=== PATIENT | male | born 1960 | race Caucasian/White ===

== ENCOUNTER → 2017-03-06 | Emergency (ER) | payer SELFPAY ==
[~2017-03-06] MED LIST: Bupivacaine 0.5%* 50 ML VIAL INJ ONE; Morphine INJ* 4 MG/ML 1 ML SYRINGE IV ONE; Morphine INJ* 4 MG/ML 1 ML SYRINGE ONE; NS 0.9% 1000 ML* 1,000 ML IV ONE; Ondansetron INJ* 2 MG/ML VIAL IV ONE; ceFAZolin 2 GM PREMIX(*) 2 GM/50 ML BAG IVPB ONE; oxyCODONE/Acetamin 5/325 MG* TAB PO ONE
--- NOTE | 2017-03-06 14:58 | RAD ---
Indication: Traumatic injury to the LEFT hand; laceration with table saw. Comparison: No relevant prior exams available on the [facility] for comparison. Technique: AP and lateral views of the LEFT hand were obtained with a bandage in place. REPORT AND IMPRESSION: Detail is limited due to flexion position of the fingers and overlying bandage. There is traumatic injury to the fourth finger at the level of the distal interphalangeal joint with traumatic comminution/fracture of the distal phalanx with sparing of the tuft. There is also suggestion of comminution/fracture at the head of the second middle phalanx extending to the distal interphalangeal joint. Negative for dislocation.
--- NOTE | 2017-03-06 16:29 | RAD ---
INDICATION: Left hand versus saw COMPARISON: Same day left hand radiograph acquired 1342 hours with the fingers flexed with bandaging TECHNIQUE: 2 views of the left hand were obtained at 1459 hours FINDINGS: There is abrupt cut off of the left index finger middle phalanx distal pole. The distal phalanx of the index finger is otherwise appropriately aligned. There is induration of the soft tissue in between the bones. There is obliteration of the proximal pole of the left ring finger distal phalanx with bony fragments seen in the soft tissue. The remaining visualized bones of the left hand and wrist are otherwise intact and appropriately aligned. IMPRESSION: Obliteration of the distal pole of the left index finger middle phalanx and left ring finger distal phalanx proximal pole consistent with the patient's reported "saw injury"
[2017-03-06 19:34] VITALS: BP 149/84
--- NOTE | 2017-03-07 16:54 | CONS ---
CONSULTATION REPORT: DATE OF CONSULT: 03/06/17 - EMERGENCY DEPT CHIEF COMPLAINT: Left hand injury. HISTORY OF PRESENT ILLNESS: Ritchie Mercedes is a very pleasant 57-year-old man, who injured his left hand with a table saw. He was holding the end of the board and his hand got caught by the saw, injuring the index, middle, and ring fingers. He has had a dose of IV antibiotic and some digital blocks and x- rays. X-rays show no injury of the thumb, middle, and small fingers. There is a cut though the DIP joint of the index finger and through the most proximal aspect of the distal phalanx of the left ring finger. PHYSICAL EXAM: Mr. Mercedes is a very pleasant 57-year-old man, in moderate distress at rest. On exam of his left hand, there are lacerations mostly on the volar aspect of the index, middle, and ring fingers of the left hand. The middle finger has a laceration across the DIP joint flexion crease. He has active flexion of the finger, but no sensation distal. The tip is well perfused. He has active extension of the finger and he has PIP motion. He has no motion past the DIP joint of the index and ring fingers. There is a very tiny skin bridge holding on the distal aspect of the index finger and a 1-cm skin bridge holding the distal aspect of the ring finger. IMPRESSION: Table saw injury of the left hand involving the index, middle, and ringer fingers. PLAN: The patient was prior given the digital block by the emergency room physician. This was supplemented with some 1% plain lidocaine. I did a revision amputation of the index and ring fingers, removing the unstable bony fragments and the poorly perfused skin and then closing with flaps that were remaining. The laceration of the middle finger was sutured in situ with 4-0 nylon suture. The wounds were dressed with Xeroform, 4x4, Rob, and an Deepak wrap. The patient tolerated the procedure well. He was given prescription for p.o. antibiotics and for pain medication and was asked to follow up in my office on Friday for wound evaluation and then we will start him on some warm and soapy water soaking. [id number]/[facility] #: [id number] CLAUDIA
--- NOTE | 2017-03-10 10:07 | ED ---
Gretchen Horton Thomas, scribed for Jayme Rojas MD on 03/06/17 at 1500 . Upper Extremity Pain - HPI Summary HPI Summary: The pt is a 57 y/o M presenting to the ED c/o lacerations on the L hand s/p table saw injury. He is R-handed. He reports that he has had a tetanus shot within the last two years. He rates his pain 7/10 in the ED. Upon evaluation, a bandage is applied. The pt says that it is wrapped very tight and is throbbing . PMHx: ID (two). PSHx: coronary stents. The pt is on a blood thinner. - History of Current Complaint Chief Complaint: EDGeneral Stated Complaint: LT HAND LAC Time Seen by Provider: 03/06/17 14:31 Hx Obtained From: Patient Mechanism Of Injury: Penetrating Trauma - table saw Onset/Duration: Still Present Timing: Constant Severity Initially: Moderate Pain Location: Hand - L Character: Throbbing Aggravating Factor(s): Nothing Alleviating Factor(s): Nothing - Allergies/Home Medications Allergies/Adverse Reactions: Allergies Allergy/AdvReac Type Severity Reaction Status Date / Time No Known Allergies Allergy Verified 03/06/17 15:30 Home Medications: Home Medications Aspirin EC Low Dose* [Ecotrin EC Low Dose 81 MG*] 81 mg PO DAILY 03/06/17 [ History Confirmed 03/06/17] Atorvastatin* [Lipitor*] 40 mg PO DAILY 03/06/17 [History Confirmed 03/06/17] Fluticasone-Salmeterol 250-50* [Advair Diskus 250-50*] 1 puff INH BID 03/06/17 [ History Confirmed 03/06/17] Isosorbide Mononitrate ER TAB* [Imdur ER TAB*] 60 mg PO DAILY 03/06/17 [History Confirmed 03/06/17] Lisinopril [Lisinopril 2.5 MG-] 1.25 mg PO DAILY 03/06/17 [History Confirmed ] Metoprolol Succinate XL TAB* [Toprol XL TAB*] 25 mg PO TID 03/06/17 [History Confirmed 03/06/17] Metoprolol Succinate [Toprol Xl] 25 mg PO TID 03/06/17 [History Confirmed ] Nicotine Inhaler* 10 mg INH Q2H PRN 03/06/17 [History Confirmed 03/06/17] Nitroglycerin TAB 0.4 MG* 0.4 mg SL Q5M PRN 03/06/17 [History Confirmed 03/06/17 ] Prasugrel HCl [Effient] 10 mg PO DAILY 03/06/17 [History Confirmed 03/06/17] Ranolazine (NF) [Ranexa (NF)] 500 mg PO BID 03/06/17 [History Confirmed 03/06/17 ] Zolpidem TAB* [Ambien TAB*] 5 mg PO BEDTIME PRN 03/06/17 [History Confirmed ] PMH/Surg Hx/FS Hx/Imm Hx Previously Healthy: No Cardiovascular History: Reports: Hx Myocardial Infarction - two Sensory History: Denies: Hx Legally Blind - Surgical History Surgery Procedure, Year, and Place: Coronary stents Infectious Disease History: No Infectious Disease History: Denies: Traveled Outside the [place] in Last 30 Days - Family History Known Family History: Negative: Cardiac Disease, Diabetes - Social History Alcohol Use: Rare Substance Use Type: Reports: None Smoking Status (MU): Heavy Every Day Tobacco Smoker Review of Systems Positive: Skin Diaphoresis. Negative: Fever, Chills Eyes: Negative Negative: Erythema - eyes ENT: Negative Negative: Sore Throat Cardiovascular: Negative Negative: Chest Pain Respiratory: Negative Negative: Shortness Of Breath Gastrointestinal: Negative Negative: Abdominal Pain, Diarrhea, Nausea Genitourinary: Negative Negative: dysuria, hematuria Musculoskeletal: Negative Negative: Myalgia, Edema - leg Positive: Other - Lacerations to L hand on pointer, middle, and ring finger. Neurological: Negative, Other - NEG: dizziness Psychological: Normal All Other Systems Reviewed And Are Negative: Yes Physical Exam - Summary Physical Exam Summary: Constitutional: Well-developed, Well-nourished, Alert, Cooperative Skin: Warm, Dry. The pt has lacerations 1cm each on the pointer, middle finger, and ring finger. The pointer finger has a 5mm round area possibly necrotic or hyperpigmented over the distal phalynx. All the lacerations are over the distal interphalangeal joint. HENT: Normocephalic; No Racoons eyes; No battles sign; No abrasion; No contusion ; No hemotympanum; No maxilla facial tenderness or instability; Dentition are smooth; No dental trauma; No trismus Eyes: EOM normal, PERRL Neck: Trachea is midline. No stridor; No JVD; No step off; No posterior cervical spine tenderness Cardio: Rhythm regular, rate normal Heart sounds normal; Intact distal pulses; The pedal pulses are 2+ and symmetric. Radial pulses are 2+ and symmetric. Pulmonary/Chest wall: Effort normal; Breath sounds normal; Equal chest rise; No flail segment; No rib tenderness; No sternal tenderness Abd: Soft, Appearance normal. No distension; No tenderness; No palpable pulsatile mass; No Cullens sign; No Lr-Turners sign Musculoskeletal: Full ROM and no tenderness at hips, ankles, shoulders, elbows and knees; No joint swelling; No vertebral body tenderness; No paraspinal tenderness; No step off or deformity of the spine; Pelvis is stable to lateral compression and rock Neuro: Light touch sensation is absent on the lacerated fingers. The pt does have intact flexion and extension of the lacerated fingers at the DIP and PIP joints. Exam is somewhat limited due to pain. Alert, Oriented x3, Strength 5/5 all extremities. : No blood at urethral meatus Psych: Mood and affect Normal Triage Information Reviewed: Yes Vital Signs On Initial Exam: Initial Vitals Temp Resp BP Pulse Ox 98.5 F 22 156/81 95 03/06/17 14:02 03/06/17 14:02 03/06/17 14:02 03/06/17 14:02 Vital Signs Reviewed: Yes - Chava Coma Scale Coma Scale Total: 15 Diagnostics - Vital Signs Vital Signs Temp Pulse Resp BP Pulse Ox 03/06/17 14:25 78 94 03/06/17 14:23 134/68 03/06/17 14:22 98.5 F 79 22 134/68 96 03/06/17 14:02 98.5 F 22 156/81 95 - Laboratory Lab Statement: Any lab studies that have been ordered have been reviewed, and results considered in the medical decision making process. - Radiology Hand XR 14:23 Xray Interpretation: Positive (See Comments) - Detail is limited due to flexion position of the fingers and overlying bandage. There is traumatic injury to the fourth finger at the level of the distal interphalangeal joint with traumatic comminution/fracture of the distal phalanx with sparing of the tuft. There is also suggestion of comminution/fracture at the head of the second middle phalanx extending to the distal interphalangeal joint. Negative for dislocation. Radiology Interpretation Completed By: Radiologist Hand XR 15:21 Xray Interpretation: Positive (See Comments) - Obliteration of the distal pole of the left index finger middle phalanx and left ring finger distal phalanx proximal pole consistent with the patient's reported "saw injury" Radiology Interpretation Completed By: Radiologist Re-Evaluation - Re-Evaluation First Eval Re-Evaluation Time: 16:08 Change: Improved - Feeling better with IV fluids. Second Eval Re-Evaluation Time: 16:12 Change: Unchanged Comment: Nursing was directed to irrigate. Tight dressings are applied. Dr. Kohli is aware of this. Course/Dx - Course Course Of Treatment: The pt was given morphine, Zofran, and Percocet in the ED course. The pt became hypotensive at morphine administration but responded well to IV fluids. A nurse inserted a second IV. PROCEDURE NOTE: Digital nerve block to the index finger. Fingers was prepped for injection. The pt was given 2 mLs of Bupivacaine 0.5% to the area. There was good local anesthesia. PROCEDURE NOTE: Digital nerve block to the middle finger. Finger was prepped for injection. The pt was given 2 mLs of Bupivacaine 0.5% to the area. There was good local anesthesia. PROCEDURE NOTE: Digital nerve block to the ring finger. Finger was prepped for injection. The pt was given 2 mLs of Bupivacaine 0.5% to the area. There was good local anesthesia. Assessment/Plan: The pt is a 57 y/o M presenting to the ED c/o lacerations on the L hand s/p table saw injury. He is R-handed. He reports that he has had a tetanus shot within the last two years. He rates his pain 7/10 in the ED. Upon evaluation, a bandage is applied. The pt says that it is wrapped very tight and is throbbing. PMHx: ID (two). PSHx: coronary stents. The pt is on a blood thinner. Hand XR 14:23 reveals detail is limited due to flexion position of the fingers and overlying bandage. There is traumatic injury to the fourth finger at the level of the distal interphalangeal joint with traumatic comminution/fracture of the distal phalanx with sparing of the tuft. There is also suggestion of comminution/fracture at the head of the second middle phalanx extending to the distal interphalangeal joint. Negative for dislocation. The second Hand XR 15:21 revealed Obliteration of the distal pole of the left index finger middle phalanx and. left ring finger distal phalanx proximal pole consistent with the patient's reported "saw. injury". The pt was given morphine, Zofran, and Percocet in the ED course. The pt became hypotensive at morphine administration but responded well to IV fluids. A nurse inserted a second IV. PROCEDURE NOTE: Digital nerve block to the index finger. Fingers was prepped for injection. The pt was given 2 mLs of Bupivacaine 0.5% to the area. There was good local anesthesia. PROCEDURE NOTE: Digital nerve block to the middle finger. Finger was prepped for injection. The pt was given 2 mLs of Bupivacaine 0.5% to the area. There was good local anesthesia. PROCEDURE NOTE: Digital nerve block to the ring finger. Finger was prepped for injection. The pt was given 2 mLs of Bupivacaine 0.5% to the area. There was good local anesthesia. At first re-evaluation the pt was feeling better with IV fluids. At second re-eval, nursing was directed to irrigate. Tight dressings were applied. Dr. Kohli is aware of this. The pt was seen by Dr. Kohli, who was consulted regarding patient care. She is at the bed for the hand injury. She made an antibiotics recommendation. She wants him to follow up at her office in two days. She made amputations. Pt is diagnosed with finger amputations and given informational materials. Pt was discharged home. Pt is agreeable with this plan. Pt was told to return to the ED for changing or worsening symptoms. - Diagnoses Provider Diagnoses: FINGER AMPUTATION of index, middle, ring - Physician Notifications Discussed Care of Patient With: Juliana Kohli Time Discussed With Above Provider: 16:20 Instructed by Provider To: Other - Dr. Kohli was consulted regarding patient care. She is at the bed for the hand injury. She made an antibiotics recommendation. She wants him to follow up at her office in two days. She made amputations. Discharge - Discharge Plan Condition: Stable Disposition: HOME Prescriptions: Cephalexin CAP* [Keflex CAP*] 500 mg PO QID #40 cap oxyCODONE/Acetamin 5/325 MG* [Percocet 5/325 TAB*] 2 tab PO Q6H PRN #15 tab MDD 8 PRN Reason: Pain - Moderate To Severe Patient Education Materials: Finger Amputation (ED) Forms: *Work Release Referrals: Juliana Kohli MD [Medical Doctor] - 2 Days Additional Instructions: RETURN TO THE EMERGENCY DEPARTMENT FOR CHANGING OR WORSENING SYMPTOMS The documentation as recorded by the Gretchen saul Thomas accurately reflects the service I personally performed and the decisions made by , Jayme Rojas MD.
== END | disposition home or self-care (01) ==
LOC: ED 14:01
DX: S61.211A Laceration without foreign body of left index finger without damage to nail, initial encounter (principal); S61.213A Laceration without foreign body of left middle finger without damage to nail, initial encounter; S61.215A Laceration without foreign body of left ring finger without damage to nail, initial encounter; W29.8XXA Contact with other powered hand tools and household machinery, initial encounter; Y93.89 Activity, other specified; Y92.89 Other specified places as the place of occurrence of the external cause
CPT/HCPCS: 88302; 96374; 96375; 99284; J0690; J2270; J2405